=== PATIENT | female | born 1970 | race African-American/Black ===

== ENCOUNTER 2019-07-21 17:14 | Emergency (ER) | payer OTHER ==
[~2019-07-21] VITALS: Ht 162.6 cm; Wt 57.6 kg
[2019-07-21 17:17] VITALS: Ht 162.6 cm; Wt 57.6 kg
[2019-07-21 18:13] LABS: microscopic required? YES; urine erythrocyte 3+ (NEGATIVE)
[2019-07-21 18:16] LABS: BASOPHIL % 0.4 % (0-2); PLATELET COUNT 256 x10^3mcL (130-400); RED CELL DISTRIBUTION WIDTH 14.5 % (11.5-14.5)
[2019-07-21 18:36] LABS: CARBON DIOXIDE 24.1 mmol/L (21-32); CHLORIDE SERUM 105 mmol/L (98-107); CREATININE SERUM 0.7 mg/dL (0.6-1.0); GFR1 > 60 mL/min; GLUCOSE SERUM 70 mg/dL (74-106); POTASSIUM SERUM 3.3 mmol/L (3.5-5.1); SODIUM SERUM 140 mmol/L (136-145)
[2019-07-21 18:37] LABS: CALCIUM 9.1 mg/dL (8.5-10.1)
[2019-07-21 21:42] VITALS: BP 121/73
== END 2019-07-21 21:42 | disposition home or self-care (01) ==
LOC: ED 17:14
PROVIDERS: Emergency Medicine
DX: N76.0 Acute vaginitis (principal); D25.9 Leiomyoma of uterus, unspecified; Z41.1 Encounter for cosmetic surgery; Z98.890 Other specified postprocedural states
CPT/HCPCS: 36415; 87491; 87591

== ENCOUNTER 2020-04-15 20:00 | Emergency (ER) | payer OTHER ==
[~2020-04-15] VITALS: Ht 162.6 cm; Wt 61.3 kg
[2020-04-15 20:04] VITALS: Ht 162.6 cm; Wt 61.3 kg
[2020-04-15 20:41] VITALS: BP 137/79
== END 2020-04-15 20:41 | disposition home or self-care (01) ==
LOC: ED 20:00
DX: T23.231A Burn of second degree of multiple right fingers (nail), not including thumb, initial encounter (principal); Z98.890 Other specified postprocedural states; Z41.1 Encounter for cosmetic surgery; X10.2XXA Contact with fats and cooking oils, initial encounter; Y93.89 Activity, other specified; Y92.89 Other specified places as the place of occurrence of the external cause; Y99.8 Other external cause status